=== PATIENT | male | born 1985 | race Caucasian/White ===

== ENCOUNTER 2022-02-22 23:30 | Emergency (ER) | payer BC ==
[~2022-02-22] VITALS: Ht 177.8 cm; Wt 113.4 kg
[2022-02-22] MEDS ORDERED: METH40 PO (23:53)
== END 2022-02-22 23:50 | disposition home or self-care (01) ==
LOC: ER 23:30
DX: Z76.0 Encounter for issue of repeat prescription (principal); F17.220 Nicotine dependence, chewing tobacco, uncomplicated
CPT/HCPCS: 99281

== ENCOUNTER 2024-06-07 17:28 | Emergency (ER) | payer BC ==
[~2024-06-07] VITALS: Ht 180.3 cm; Wt 117.9 kg
[~2024-06-07 17:28] MED LIST: METH40 PO
[2024-06-07 17:37] VITALS: BP 157/97
[2024-06-07] MEDS ORDERED: NEURONTIN40010 PO (17:39)
[2024-06-07] MEDS ORDERED: OXYC5 (17:39)
[2024-06-07] MEDS ORDERED: Ketorolac Tromethamine 30mg Vial IM ONE (17:45)
[2024-06-07] MEDS ORDERED: Lidocaine 4% 1 Patch TOP ONE (17:45)
[2024-06-07] MEDS ORDERED: LIDO700A20 TOP (19:06)
[2024-06-07] MEDS ORDERED: Robaxin750 MG PO (19:06)
== END 2024-06-07 19:07 | disposition home or self-care (01) ==
LOC: ER 17:28
DX: M54.9 Dorsalgia, unspecified (principal); Z79.899 Other long term (current) drug therapy; W11.XXXA Fall on and from ladder, initial encounter
CPT/HCPCS: 71101; 96372; 99283-25; A9270; J1885

== ENCOUNTER 2024-09-12 06:39 | Emergency (ER) | payer BC ==
[~2024-09-12] VITALS: Ht 180.3 cm; Wt 117.9 kg
[~2024-09-12 06:39] MED LIST changes: +LIDO700A20 TOP; +NEURONTIN40010 PO; +OXYC5; +Robaxin750 MG PO
[2024-09-12] MEDS ORDERED: Ondansetron HCl 2 MG / ML 2ML Vial IV ONE ×2 (06:45→08:50)
[2024-09-12] MEDS ORDERED: NARCAN4 M1 (07:00)
[2024-09-12 09:39] VITALS: BP 131/98
== END 2024-09-12 09:45 | disposition home or self-care (01) ==
LOC: ER 06:39
DX: T40.3X1A Poisoning by methadone, accidental (unintentional), initial encounter (principal); Z79.899 Other long term (current) drug therapy
CPT/HCPCS: 71045; 96374; 99284-25; J2405